=== PATIENT | male | born 1970 | race Two or more races ===

== ENCOUNTER 2023-04-13 17:28 | Emergency (ER) | payer OTHER, SELFPAY ==
[2023-04-13] VITALS (12 sets, daily range): BP systolic 141–145; BP diastolic 85–90; PULSE 55–78; RESP 5–24; TEMP 36.5; O2SAT 98–100; BMI 24.2
--- NOTE | 2023-04-13 17:37 | ECG_ITS ---
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
--- NOTE | 2023-04-13 17:38 | CT_ITS ---
The [address] [address] Patient Name: YARITZA TAN MRN: [id number] date: 1970 Sex: M Assigned Patient Location: ED.MAIN Current Patient Location: Accession/Order Number: [id number] Exam Date: 04/13/2023 18:10 Report Date: 04/13/2023 18:45 At the request of: GALINDO KOGN Procedure: CT head/brain wo con EXAM: CT head/brain wo con HISTORY: head injury COMPARISON: None. TECHNIQUE: Axial CT scans through the head were obtained without IV contrast administration. Dose reduction techniques were achieved by using: automated exposure control and/or adjustment of mA and /or kV according to patient size and/or use of iterative reconstruction technique. FINDINGS: There is no evidence of acute intracranial hemorrhage or abnormal extra-axial fluid collection. No mass effect or midline shift is seen. There is no evidence of large acute territorial infarction. There is no hydrocephalus. To the limit of CT, the posterior fossa appears unremarkable. No definite acute fracture is identified. Soft tissues are unremarkable. The visualized orbits show no abnormality. There is partially visualized small air-fluid level within the left maxillary sinus with frothy secretions. Mastoid air cells are clear. CT/CT head/brain wo con IMPRESSION: No CT evidence of acute intracranial abnormality. Partially visualized small air-fluid level within the left maxillary sinus with frothy secretions, may represent acute sinusitis. Recommend clinical correlation. Electronically authenticated by: DWIGHT LEONU Date: 04/13/2023 18:45
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
[2023-04-13] MEDS: ACETAMINOPHEN 300 MG/ 30 MG CODEINE TABLET 1 TAB PO (18:21)
== END 2023-04-13 19:04 | disposition home or self-care (01) ==
PROVIDERS: Emergency Provider Emergency Medicine
DX: S00.93XA Contusion of unspecified part of head, initial encounter (principal); S20.211A Contusion of right front wall of thorax, initial encounter; Y09 Assault by unspecified means; Z95.0 Presence of cardiac pacemaker
CPT/HCPCS: 70450; 71045; 93005; 99285

== ENCOUNTER 2023-11-09 00:57 | Emergency (ER) | payer OTHER, SELFPAY ==
[2023-11-09] VITALS (7 sets, daily range): BP systolic 109–115; BP diastolic 76–88; PULSE 67–83; TEMP 36.4; O2SAT 96–98; BMI 25.7
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
--- OUTSIDE RECORDS SUMMARY | 2023-11-09 01:11 | XMS_ITS | CCD ---
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 FILTRATION RATE ML/MIN/1.73 SQ M.PREDICTED 74.8 mL/min/1.73m*2 Normal >60.0 [facility] Comment on above: Result Comment: The [facility]???s estimated glomerular filtration rate (eGFR) will no longer include consideration of race in its calculation. The National Kidney Foundation???s eGFR Task Force developed new recommendations for the estimation of the glomerular filtration rate in the [place] They recommend immediate implementation of the new equation refit without the race variable in all laboratories because the calculation does not include race. In addition to not including race in the calculation and reporting, it included diversity in its development, and has acceptable performance characteristics and potential consequences that do not disproportionately affect any one group of individuals. Performed By: #### L [id number] ####[facility] ([facility])[address] [place] [address] Glucose [Mass/Vol] 89 mg/dL Normal 70-100 [facility] Comment on above: Performed By: #### L [id number] ####[facility] ([facility])[address] [place] [address] Potassium [Moles/Vol] 4.8 mmol/L Normal 3.5-5.1 [facility] Comment on above: Performed By: #### L [id number] ####[facility] ([facility])[address] [place] [address] Protein [Mass/Vol] 6.2 g/dL Normal 6.0-8.3 [facility] Comment on above: Performed By: #### L [id number] ####[facility] ([facility])[address] [place] [address] Sodium [Moles/Vol] 139 mmol/L Normal 136-145 [facility] Comment on above: Performed By: #### L [id number] ####[facility] ([facility])[address] [place] [address] Urea nitrogen [Mass/Vol] 21 mg/dL Normal 7-25 [facility] Comment on above: Performed By: #### L [id number] ####[facility] ([facility])[address] [place] [address] UREA NITROGEN/CREATININE (MASS RATIO) IN SER/PLAS 18.1 Normal [facility] Comment on above: Performed By: #### L [id number] ####[facility] ([facility])[address] [place] [address] HEMOGLOBIN A1Con 10-31-2022 Glucose [Mass/Vol] 120 mg/dL Normal [facility] Comment on above: Performed By: #### L [id number] #### [facility] ([facility]) [address] [place] [address] HbA1c (Bld) [Mass fraction] 5.8 % Normal 4.0-6.0 [facility] Comment on above: Performed By: #### L [id number] #### [facility] ([facility]) [address] [place] [address] LIPID PANELon 10-31-2022 CHOL/HDL 2.8 mg/dL Normal [facility] Comment on above: Performed By: #### L [id number] #### [facility] ([facility]) [address] [place] [address] Cholesterol [Mass/Vol] 162 mg/dL Normal 120-200 [facility] Comment on above: Performed By: #### L [id number] #### [facility] ([facility]) [address] [place] [address] Magnesium [Mass/Vol] 141 mg/dL Normal 40-149 [facility] Comment on above: Result Comment: TRIG LYCERIDE REFERENCE RANGE: 20 YEARS AND OLDER CARDIOVASCULAR RISK LESS THAN 150 mg/dL LOW RISK 150 TO 199 mg/dL BORDERLINE RISK 200 mg/dL AND GREATER HIGH RISK Performed By: #### L [id number] #### [facility] ([facility]) [address] [place] [address] Magnesium [Mass/Vol] 76 mg/dL Normal 0-160 [facility] Comment on above: Performed By: #### L [id number] #### [facility] [address] [place] [address] Magnesium [Mass/Vol] 58 mg/dL Normal 23-92 [facility] Comment on above: Performed By: #### L [id number] #### [facility] (BEAKER) [address] [place] [address] NON HDL CHOL. (LDL+VLDL) 104 Normal [facility] Comment on above: Performed By: #### L [id number] #### [facility] ([facility]) [address] [place] [address] TOTAL VLDL-C 28 mg/dL Normal 0-40 [facility] Comment on above: Performed By: #### L [id number] #### [facility] ([facility]) [address] [place] [address] MICROALBUMIN, URINE, RANDOMo n 10-31-2022 Albumin DL <= 20 mg/L (U) [Mass/Vol] mg/dL Normal [facility] Comment on above: Performed By: #### L [id number] #### [facility] ([facility]) [address] [place] [address] Creatinine (U) [Mass/Vol] 135.0 mg/dL Normal 26-299 [facility] Comment on above: Performed By: #### L [id number] #### [facility] ([facility]) [address] [place] [address] MICROALBUMIN/CREATI NINE (MG/G) IN URINE Normal [facility] Comment on above: Result Comment: Unab le to calculate Performed By: #### L [id number] #### [facility] ([facility]) [address] [place] [address] Office Visiton 10-31-2022 Follow-up visit [id number] Boni Cross 1970 M Date Provider Department Center 10/31/2022 JUAN EDWARDS [facility] Family History Problem Relation Age of Onset Lupus Mother Rheum arthritis Mother Scleroderma Mother Fibromyalgia Father Family Status - Relation Status Age at Mother Father Level of Service:74438 [place] PERIODIC PREVENTIVE MED EST PATIENT 40-64YRS Reason for Visit and Comments: Annual Exam [83] Normal [facility] PSA, SCREENINGon 10-31-2022 PROSTATE SPECIFIC AG (NG/ML) IN SER/PLAS 0.8 ng/mL Normal 0.4-4 [facility] Comment on above: Performed By: #### L [id number] #### [facility] ([facility]) [address] [place] [address] Refillon 10-31-2022 Refill [id number] BritneyBoni 1970 M Date Provider Department Center 10/31/2022 ElleNILOISABELTANA [facility] Family History Problem Relation Age of Onset Lupus Mother Rheum arthritis Mother Scleroderma Mother Fibromyalgia Father Family Status - Relation Status Age at Mother Father Reason for Visit and Comments: Med Refill [[id number]] [facility] 36on 10-12-2022 36 Called patient scheduled his Annual appointment with Dr España 10/31/22 @ 9am Can you send over his prescription Thank you Maria Ines [facility] 36 Needs an appt. thx [facility] 36on 10-11-2022 36 Patient called requesting refill on his Pregabalin 75 mg capsule Pharmacy on file is correct Thank you [facility] Prep for Procedureon 023 Prep for Procedure [id number] Boni Cross 1970 M Date Provider Department Center 10/11/2022 1987-NICHOLE GÓMEZ [facility]ANE [facility]D [facility] Family History Problem Relation Age of Onset Lupus Mother Rheum arthritis Mother Scleroderma Mother Fibromyalgia Father Family Status - Relation Status Age at Mother Father [facility] Refillon 10-11-2022 Refill [id number] BritneyBoni gerard 1970 M Date Provider Department Center 10/11/2022 362-JUAN ESPAÑA [facility] Family History Problem Relation Age of Onset Lupus Mother Rheum arthritis Mother Scleroderma Mother Fibromyalgia Father Family Status - Relation Status Age at Mother Father Reason for Visit and Comments: Med Refill [[id number]] [facility] Office Visiton 10-09-2022 Follow-up visit [id number] Boni Cross 1970 M Date Provider Department Center 10/09/2022 241-MITUL REESE [facility] Family History Problem Relation Age of Onset Lupus Mother Rheum arthritis Mother Scleroderma Mother Fibromyalgia Father Family Status - Relation Status Age at Mother Father Level of Service:42151 OK OFFICE/OUTPATIENT ESTABLISHED HIGH MDM 40-54 MIN Reason for Visit and Comments: Follow-up [[id number]] - 5 month f/u [facility] Orders Onlyon 10-09-2022 Orders Only [id number] Ulysses Crossdo 1970 M Date Provider Department Center 10/09/2022 TIERRA PEREZ [facility] Family History Problem Relation Age of Onset Lupus Mother Rheum arthritis Mother Scleroderma Mother Fibromyalgia Father Family Status - Relation Status Age at Mother Father Normal [facility] Office Visiton 08-02-2022 Follow-up visit [id number] Ulysses Crossdo 1970 M Date Provider Department Center 08/02/2022 CATRACHO GUZMAN [facility] ORTHO MPORTHO Family History Problem Relation Age of Onset Lupus Mother Rheum arthritis Mother Scleroderma Mother Fibromyalgia Father Family Status - Relation Status Age at Mother Father Level of Service:51905 OK OFFICE/OUTPATIENT ESTABLISHED MOD MDM 30-39 MIN (25,GC) Reason for Visit and Comments: Pain [136] - Referred by Dr. España Pain [136] [facility] Office Visiton 07-16-2022 Follow-up visit [id number] Ulysses Crossdo 1970 M Date Provider Department Center 07/16/2022 HAYDEE ZAFAR [facility] Family History Problem Relation Age of Onset Lupus Mother Rheum arthritis Mother Scleroderma Mother Fibromyalgia Father Family Status - Relation Status Age at Mother Father Level of Service:34363 OK OFFICE/OUTPATIENT NEW MODERATE MDM 45-59 MINUTES Reason for Visit and Comments: New Patient [632] - Ed issues [facility] OSMOLALITYon 05-30-2022 Osmolality [Osmolality] 256 mosm/kg Critically low 275-295 [facility] Comment on above: Performed By: #### O SMO #### [facility] [address] [place] [address] Dr. Salud Lord CARBAMAZEPINE FREEon 023 Carbamazepine, Free, Serum 0.7 ug/mL Normal 0.6-4.2 [facility] Comment on above: Result Comment: Dete ction Limit = 0.5 Performed By: #### C BC #### [facility] [address] [place] [address] Dr. Salud Lord OSMOLALITY URINEon Osmolality, Urine 120 mOsmol/kg Normal [facility] Comment on above: Result Comment: 24 h r : 300 - 900 Random: 50 - 1400 After 12hr fluid restriction: >850 Performed By: #### O SMOU #### [facility] [address] [place] [address] Dr. Salud Lord CBC AUTO DIFFon 05-28-2022 BASO # 0.0 103/ul Normal 0.0-0.1 [facility] Comment on above: Performed By: #### C BC #### [facility] [address] [place] [address] Dr. Salud Lord Basophils/100 WBC (Bld) 0.2 % Normal 0.2-2.0 [facility] Comment on above: Performed By: #### C BC #### [facility] [address] [place] [address] Dr. Salud Lord EO # 0.0 103/ul Normal 0.0-0.7 [facility] Comment on above: Performed By: #### C BC #### [facility] [address] [place] [address] Dr. Salud Lord Eosinophils/100 WBC (Bld) 0.2 % Critically low 0.9-7.0 [facility] Comment on above: Performed By: #### C BC #### [facility] [address] [place] [address] Dr. Salud Lord Erythrocyte distribution width (RBC) [Ratio] 12.7 % Normal 11.0-15.0 [facility] Comment on above: Performed By: #### C BC #### [facility] [address] [place] [address] Dr. Salud Lord Hematocrit (Bld) [Volume fraction] 36.5 % Critically low 42.0-54.0 [facility] Comment on above: Performed By: #### C BC #### [facility] [address] [place] [address] Dr. Salud Lord Hemoglobin (Bld) [Mass/Vol] 12.9 g/dL Critically low 14.0-18.0 [facility] Comment on above: Performed By: #### C BC #### [facility] [address] [place] [address] Dr. Salud Lord IG # 0.04 10e3/ul Critically high 0.00-0.03 [facility] Comment on above: Performed By: #### C BC #### [facility] [address] [place] [address] Dr. Salud Lord IG % 0.5 % Normal 0.0-0.5 [facility] Comment on above: Performed By: #### C BC #### [facility] [address] [place] [address] Dr. Salud Lord LYMPH # 0.5 103/ul Critically low 1.2-3.8 [facility] Comment on above: Performed By: #### C BC #### [facility] [address] [place] [address] Dr. Salud Lord Lymphocytes/100 WBC (Bld) 6.0 % Critically low 20.5-60.0 [facility] Comment on above: Performed By: #### C BC #### [facility] [address] [place] [address] Dr. Salud Lord MANUAL DIFF REQ NO Normal [facility] Comment on above: Performed By: #### C BC #### [facility] [address] [place] [address] Dr. Salud Lord MCH (RBC) [Entitic mass] 32.3 pg Normal 25.9-34.0 [facility] Comment on above: Performed By: #### C BC #### [facility] [address] [place] [address] Dr. Salud Lord MCHC (RBC) [Mass/Vol] 35.3 g/dL Critically high 29.9-35.2 [facility] Comment on above: Performed By: #### C BC #### [facility] [address] [place] [address] Dr. Salud Lord MCV (RBC) [Entitic vol] 91.3 fL Normal 80.0-94.0 [facility] Comment on above: Performed By: #### C BC #### [facility] [address] [address] [address] Salud Lord MONO # 0.5 103/ul Normal 0.3-0.8 [facility] Comment on above: Performed By: #### C BC #### [facility] [address] [address] [address] Salud Lord Monocytes/100 WBC (Bld) 6.3 % Normal 1.7-12.0 [facility] Comment on above: Performed By: #### C BC #### [facility] [address] [address] [address] Salud Lord NEUT # 7.2 103/ul Critically high 1.4-6.5 [facility] Comment on above: Performed By: #### C BC #### [facility] [address] [place] [address] Dr. Salud Lord Neutrophils/100 WBC (Bld) 86.8 % Critically high 43.0-75.0 [facility] Comment on above: Performed By: #### C BC #### [facility] [address] [place] [address] Dr. Salud Lord Platelet mean volume (Bld) [Entitic vol] 9.4 fL Critically low 9.5-13.5 [facility] Comment on above: Performed By: #### C BC #### [facility] [address] [place] [address] Dr. Salud Lord PLT 248 103/ul Normal 150-450 [facility] Comment on above: Performed By: #### C BC #### [facility] [address] [place] [address] Dr. Salud Lord RBC 4.00 106/ul Critically low 4.70-6.10 [facility] Comment on above: Performed By: #### C BC #### [facility] [address] [place] [address] Dr. Salud Lord WBC 8.3 103/ul Normal 4.0-11.0 [facility] Comment on above: Performed By: #### C BC #### [facility] [address] [place] [address] Dr. Salud Lord PROF 14(COMP METB)on 023 Albumin [Mass/Vol] 3.7 g/dL Normal 3.4-5.0 [facility] Comment on above: Performed By: #### C MP #### [facility] [address] [place] [address] Dr. Salud Lord Albumin/Globulin [Mass ratio] 1.5 {ratio} Normal [facility] Comment on above: Performed By: #### C MP #### [facility] [address] [place] [address] Dr. Salud Lord ALP [Catalytic activity/Vol] 107 U/L Normal 46-116 [facility] Comment on above: Performed By: #### C MP #### [facility] [address] [place] [address] Dr. Salud Lord ALT [Catalytic activity/Vol] 16 U/L Normal 16-63 [facility] Comment on above: Performed By: #### C MP #### [facility] [address] [place] [address] Dr. Salud Lord Anion gap [Moles/Vol] 12.6 mmol/L Normal [facility] Comment on above: Performed By: #### C MP #### [facility] [address] [place] [address] Dr. Salud Lord AST [Catalytic activity/Vol] 17 U/L Normal 15-37 [facility] Comment on above: Performed By: #### C MP #### [facility] [address] [place] [address] Dr. Salud Lord Bilirubin [Mass/Vol] 0.3 mg/dL Normal 0.2-1.0 [facility] Comment on above: Performed By: #### C MP #### [facility] [address] [place] [address] Dr. Salud Lord Calcium [Mass/Vol] 8.1 mg/dL Critically low 8.5-10.1 [facility] Comment on above: Performed By: #### C MP #### [facility] [address] [address] [address] Salud Lord Chloride [Moles/Vol] 98 mmol/L Normal 98-107 [facility] Comment on above: Performed By: #### C MP #### [facility] [address] [place] [address] Dr. Salud Lord CO2 [Moles/Vol] 23.9 mmol/L Normal 21.0-32.0 [facility] Comment on above: Performed By: #### C MP #### [facility] [address] [place] [address] Dr. Salud Lord Creatinine [Mass/Vol] 0.83 mg/dL Normal 0.70-1.30 [facility] Comment on above: Performed By: #### C MP #### [facility] [address] [place] [address] Dr. Salud Lord EGFR-AF TRINIDADIAN >60 Normal >=60 [facility] Comment on above: Performed By: #### C MP #### [facility] [address] [place] [address] Dr. Salud Lord EGFR-NON AF TRINIDADIAN >60 Normal >=60 [facility] Comment on above: Performed By: #### C MP #### [facility] [address] [place] [address] Dr. Salud Lord Globulin (S) [Mass/Vol] 2.5 g/dL Normal [facility] Comment on above: Performed By: #### C MP #### [facility] [address] [place] [address] Dr. Salud Lord Glucose [Mass/Vol] 120 mg/dL Critically high 74-106 T [facility] Comment on above: Performed By: #### C MP #### [facility] [address] [place] [address] Dr. Salud Lord Potassium [Moles/Vol] 4.5 mmol/L Normal 3.5-5.1 [facility] Comment on above: Performed By: #### C MP #### [facility] [address] [place] [address] Dr. Salud Lord Protein [Mass/Vol] 6.2 g/dL Critically low 6.4-8.2 Th [facility] Comment on above: Performed By: #### C MP #### [facility] [address] [place] [address] Dr. Salud Lord Sodium [Moles/Vol] 130 mmol/L Critically low 136-145 Th [facility] Comment on above: Performed By: #### C MP #### [facility] [address] [place] [address] Dr. Salud Lord Urea nitrogen [Mass/Vol] 10.0 mg/dL Normal 7.0-18.0 [facility] Comment on above: Performed By: #### C MP #### [facility] [address] [place] [address] Dr. Salud Lord Urea nitrogen/Creatinine [Mass ratio] 12.0 mg/mg Normal [facility] Comment on above: Performed By: #### C MP #### [facility] [address] [place] [address] Dr. Salud Lord BNPon 05-27-2022 Natriuretic peptide B (Bld) [Mass/Vol] 38.0 pg/mL Normal <=900.0 [facility] Comment on above: Performed By: #### B PAINTER SIGN MAINTENANCE, TSH, MG #### [facility] [address] [place] [address] Dr. Salud Lord CBC AUTO DIFFon 05-27-2022 BASO # 0.0 103/ul Normal 0.0-0.1 [facility] Comment on above: Performed By: #### C BC #### [facility] [address] [place] [address] Dr. Salud Lord Basophils/100 WBC (Bld) 0.4 % Normal 0.2-2.0 [facility] Comment on above: Performed By: #### C BC #### [facility] [address] [place] [address] Dr. Salud Lord EO # 0.2 103/ul Normal 0.0-0.7 [facility] Comment on above: Performed By: #### C BC #### [facility] [address] [address] [address] Salud Lord Eosinophils/100 WBC (Bld) 4.5 % Normal 0.9-7.0 [facility] Comment on above: Performed By: #### C BC #### [facility] [address] [address] [address] Salud Lord Erythrocyte distribution width (RBC) [Ratio] 12.5 % Normal 11.0-15.0 [facility] Comment on above: Performed By: #### C BC #### [facility] [address] [place] [address] Dr. Salud Lord Hematocrit (Bld) [Volume fraction] 36.3 % Critically low 42.0-54.0 [facility] Comment on above: Performed By: #### C BC #### [facility] [address] [place] [address] Dr. Salud Lord Hemoglobin (Bld) [Mass/Vol] 12.8 g/dL Critically low 14.0-18.0 [facility] Comment on above: Performed By: #### C BC #### [facility] [address] [place] [address] Dr. Salud Lord IG # 0.02 10e3/ul Normal 0.00-0.03 [facility] Comment on above: Performed By: #### C BC #### [facility] [address] [place] [address] Dr. Salud Lord IG % 0.4 % Normal 0.0-0.5 [facility] Comment on above: Performed By: #### C BC #### [facility] [address] [place] [address] Dr. Salud Lord LYMPH # 1.0 103/ul Critically low 1.2-3.8 [facility] Comment on above: Performed By: #### C BC #### [facility] [address] [place] [address] Dr. Salud Lord Lymphocytes/100 WBC (Bld) 19.3 % Critically low 20.5-60.0 [facility] Comment on above: Performed By: #### C BC #### [facility] [address] [place] [address] Dr. Salud Lord MANUAL DIFF REQ NO Normal [facility] Comment on above: Performed By: #### C BC #### [facility] [address] [place] [address] Dr. Salud Lord MCH (RBC) [Entitic mass] 32.2 pg Normal 25.9-34.0 [facility] Comment on above: Performed By: #### C BC #### [facility] [address] [place] [address] Dr. Salud Lord MCHC (RBC) [Mass/Vol] 35.3 g/dL Critically high 29.9-35.2 [facility] Comment on above: Performed By: #### C BC #### [facility] [address] [place] [address] Dr. Salud Lord MCV (RBC) [Entitic vol] 91.2 fL Normal 80.0-94.0 [facility] Comment on above: Performed By: #### C BC #### [facility] [address] [place] [address] Dr. Salud Lord MONO # 0.4 103/ul Normal 0.3-0.8 [facility] Comment on above: Performed By: #### C BC #### [facility] [address] [place] [address] Dr. Salud Lord Monocytes/100 WBC (Bld) 7.9 % Normal 1.7-12.0 [facility] Comment on above: Performed By: #### C BC #### [facility] [address] [place] [address] Dr. Salud Lord NEUT # 3.6 103/ul Normal 1.4-6.5 [facility] Comment on above: Performed By: #### C BC #### [facility] [address] [place] [address] Dr. Salud Lord Neutrophils/100 WBC (Bld) 67.5 % Normal 43.0-75.0 [facility] Comment on above: Performed By: #### C BC #### [facility] [address] [place] [address] Dr. Salud Lord Platelet mean volume (Bld) [Entitic vol] 9.3 fL Critically low 9.5-13.5 [facility] Comment on above: Performed By: #### C BC #### [facility] [address] [address] [address] Salud Lrod PLT 216 103/ul Normal 150-450 [facility] Comment on above: Performed By: #### C BC #### [facility] [address] [address] [address] Salud Lord RBC 3.98 106/ul Critically low 4.70-6.10 [facility] Comment on above: Performed By: #### C BC #### [facility] [address] [address] [address] Salud Lord WBC 5.3 103/ul Normal 4.0-11.0 [facility] Comment on above: Performed By: #### C BC #### [facility] [address] HEAD WO CONon 05-27-2022 CT HEAD WO CON INDICATION: 51 years old; Male. Headache. TECHNIQUE: CT Head (ax/cor/sag reformats). Ionizing radiation dose reduced via iterative reconstruction/FBP blend and body size kV/mA adjustment. Comparison: Head CT dated 05/04/2019. FINDINGS: POSTOPERATIVE CHANGES: None. BRAIN PARENCHYMA: No focal lesions. No mass effect. No midline shift or herniation. No intraparenchymal or extra-axial hemorrhage. Normal briones/white differentiation. VENTRICLES/EXTRA-AXIAL SPACES: Top normal in size. SINUSES/MASTOIDS: The visualized sinuses are clear. Mastoid air cells are clear. MSK: No displaced or depressed calvarial fracture is noted. OTHER: No hyperdense intraluminal thrombus is seen. IMPRESSION: 1. No acute intracranial abnormality. No hemorrhage or mass effect. Electronically authenticated by: LISA BLAIR Date: 2022-05-26 22:45 Normal [facility] MAGNESIUMon 05-27-2022 Magnesium [Mass/Vol] 1.9 mg/dL Normal 1.8-2.4 [facility] Comment on above: Performed By: #### B PAINTER SIGN MAINTENANCE, TSH, MG #### [facility] [address] [address] [address] Salud Lord PROF 14(COMP METB)on 023 Albumin [Mass/Vol] 3.6 g/dL Normal 3.4-5.0 [facility] Comment on above: Performed By: #### B PAINTER SIGN MAINTENANCE, TSH, MG #### [facility] [address] [address] [address] Salud Lord Albumin/Globulin [Mass ratio] 1.5 {ratio} Normal [facility] Comment on above: Performed By: #### B PAINTER SIGN MAINTENANCE, TSH, MG #### [facility] [address] [address] [address] Salud Lord ALP [Catalytic activity/Vol] 81 U/L Normal 46-116 [facility] Comment on above: Performed By: #### B PAINTER SIGN MAINTENANCE, TSH, MG #### [facility] [address] [address] [address] Salud Lord ALT [Catalytic activity/Vol] 18 U/L Normal 16-63 [facility] Comment on above: Performed By: #### B PAINTER SIGN MAINTENANCE, TSH, MG #### [facility] [address] [address] [address] Salud Lord Anion gap [Moles/Vol] 7.3 mmol/L Normal [facility] Comment on above: Performed By: #### B PAINTER SIGN MAINTENANCE, TSH, MG #### [facility] [address] [address] [address] Salud Lord AST [Catalytic activity/Vol] 19 U/L Normal 15-37 [facility] Comment on above: Performed By: #### B PAINTER SIGN MAINTENANCE, TSH, MG #### [facility] [address] [address] [address] Salud Lord Bilirubin [Mass/Vol] 0.5 mg/dL Normal 0.2-1.0 [facility] Comment on above: Performed By: #### B PAINTER SIGN MAINTENANCE, TSH, MG #### [facility] [address] [address] [address] Salud Lord Calcium [Mass/Vol] 8.0 mg/dL Critically low 8.5-10.1 Th e [facility] Comment on above: Performed By: #### B PAINTER SIGN MAINTENANCE, TSH, MG #### [facility] [address] [place] [address] Dr. Salud Lord Chloride [Moles/Vol] 94 mmol/L Critically low 98-107 [facility] Comment on above: Performed By: #### B PAINTER SIGN MAINTENANCE, TSH, MG #### [facility] [address] [place] [address] Dr. Salud Lord CO2 [Moles/Vol] 28.8 mmol/L Normal 21.0-32.0 [facility] Comment on above: Performed By: #### B PAINTER SIGN MAINTENANCE, TSH, MG #### [facility] [address] [place] [address] Dr. Salud Lord Creatinine [Mass/Vol] 0.65 mg/dL Critically low 0.70-1.30 [facility] Comment on above: Performed By: #### B PAINTER SIGN MAINTENANCE, TSH, MG #### [facility] [address] [place] [address] Dr. Salud Lord EGFR-AF TRINIDADIAN >60 Normal >=60 [facility] Comment on above: Performed By: #### B PAINTER SIGN MAINTENANCE, TSH, MG #### [facility] [address] [place] [address] Dr. Salud Lord EGFR-NON AF TRINIDADIAN >60 Normal >=60 [facility] Comment on above: Performed By: #### B PAINTER SIGN MAINTENANCE, TSH, MG #### [facility] [address] [place] [address] Dr. Salud Lord Globulin (S) [Mass/Vol] 2.4 g/dL Normal [facility] Comment on above: Performed By: #### B PAINTER SIGN MAINTENANCE, TSH, MG #### [facility] [address] [place] [address] Dr. Salud Lord Glucose [Mass/Vol] 104 mg/dL Normal 74-106 [facility] Comment on above: Performed By: #### B PAINTER SIGN MAINTENANCE, TSH, MG #### [facility] [address] [place] [address] Dr. Salud Lord Potassium [Moles/Vol] 4.1 mmol/L Normal 3.5-5.1 [facility] Comment on above: Performed By: #### B PAINTER SIGN MAINTENANCE, TSH, MG #### [facility] [address] [place] [address] Dr. Salud Lord Protein [Mass/Vol] 6.0 g/dL Critically low 6.4-8.2 Th [facility] Comment on above: Performed By: #### B PAINTER SIGN MAINTENANCE, TSH, MG #### [facility] [address] [place] [address] Dr. Salud Lord Sodium [Moles/Vol] 126 mmol/L Critically low 136-145 Th [facility] Comment on above: Performed By: #### B PAINTER SIGN MAINTENANCE, TSH, MG #### [facility] [address] [place] [address] Dr. Salud Lord Urea nitrogen [Mass/Vol] 5.0 mg/dL Critically low 7.0-18.0 [facility] Comment on above: Performed By: #### B PAINTER SIGN MAINTENANCE, TSH, MG #### [facility] [address] [place] [address] Dr. Salud Lord Urea nitrogen/Creatinine [Mass ratio] 7.7 mg/mg Normal [facility] Comment on above: Performed By: #### B PAINTER SIGN MAINTENANCE, TSH, MG #### [facility] [address] [place] [address] Dr. Salud Lord PROF CHEM 8 (BAS METB)on Anion gap [Moles/Vol] 13.0 mmol/L Normal [facility] Comment on above: Performed By: #### B MP #### [facility] [address] [place] [address] Dr. Salud Lord Calcium [Mass/Vol] 7.8 mg/dL Critically low 8.5-10.1 [facility] Comment on above: Performed By: #### B MP #### [facility] [address] [place] [address] Dr. Salud Lord Chloride [Moles/Vol] 94 mmol/L Critically low 98-107 [facility] Comment on above: Performed By: #### B MP #### [facility] [address] [address] [address] Salud Lord CO2 [Moles/Vol] 24.5 mmol/L Normal 21.0-32.0 [facility] Comment on above: Performed By: #### B MP #### [facility] [address] [address] [address] Salud Lord Creatinine [Mass/Vol] 0.75 mg/dL Normal 0.70-1.30 [facility] Comment on above: Performed By: #### B MP #### [facility] [address] [address] [address] Salud Lord EGFR-AF TRINIDADIAN >60 Normal >=60 [facility] Comment on above: Performed By: #### B MP #### [facility] [address] [address] [address] Salud Lord EGFR-NON AF TRINIDADIAN >60 Normal >=60 [facility] Comment on above: Performed By: #### B MP #### [facility] [address] [address] [address] Salud Lord Glucose [Mass/Vol] 104 mg/dL Normal 74-106 [facility] Comment on above: Performed By: #### B MP #### [facility] [address] [address] [address] Salud Lord Potassium [Moles/Vol] 4.5 mmol/L Normal 3.5-5.1 [facility] Comment on above: Performed By: #### B MP #### [facility] [address] [address] [address] Salud Lord Sodium [Moles/Vol] 127 mmol/L Critically low 136-145 Th [facility] Comment on above: Performed By: #### B MP #### [facility] [address] [address] [address] Salud Lord Urea nitrogen [Mass/Vol] 6.0 mg/dL Critically low 7.0-18.0 [facility] Comment on above: Performed By: #### B MP #### [facility] [address] [address] [address] Salud Lord Urea nitrogen/Creatinine [Mass ratio] 8.0 mg/mg Normal [facility] Comment on above: Performed By: #### B MP #### [facility] [address] [place] [address] Dr. Salud Lord Anion gap [Moles/Vol] 13.1 mmol/L Normal [facility] Comment on above: Performed By: #### B PAINTER SIGN MAINTENANCE, TSH, MG #### [facility] [address] [place] [address] Dr. Salud Lord Calcium [Mass/Vol] 7.8 mg/dL Critically low 8.5-10.1 Th [facility] Comment on above: Performed By: #### B PAINTER SIGN MAINTENANCE, TSH, MG #### [facility] [address] [place] [address] Dr. Salud Lord Chloride [Moles/Vol] 92 mmol/L Critically low 98-107 [facility] Comment on above: Performed By: #### B PAINTER SIGN MAINTENANCE, TSH, MG #### [facility] [address] [place] [address] Dr. Salud Lord CO2 [Moles/Vol] 24.9 mmol/L Normal 21.0-32.0 [facility] Comment on above: Performed By: #### B PAINTER SIGN MAINTENANCE, TSH, MG #### [facility] [address] [place] [address] Dr. Salud Lord Creatinine [Mass/Vol] 0.71 mg/dL Normal 0.70-1.30 [facility] Comment on above: Performed By: #### B PAINTER SIGN MAINTENANCE, TSH, MG #### [facility] [address] [place] [address] Dr. Salud Lord EGFR-AF TRINIDADIAN >60 Normal >=60 [facility] Comment on above: Performed By: #### B PAINTER SIGN MAINTENANCE, TSH, MG #### [facility] [address] [place] [address] Dr. Salud Lord EGFR-NON AF TRINIDADIAN >60 Normal >=60 [facility] Comment on above: Performed By: #### B PAINTER SIGN MAINTENANCE, TSH, MG #### [facility] [address] [place] [address] Dr. Salud Lord Glucose [Mass/Vol] 101 mg/dL Normal 74-106 [facility] Comment on above: Performed By: #### B PAINTER SIGN MAINTENANCE, TSH, MG #### [facility] [address] [place] [address] Dr. Salud Lord Potassium [Moles/Vol] 4.0 mmol/L Normal 3.5-5.1 [facility] Comment on above: Performed By: #### B PAINTER SIGN MAINTENANCE, TSH, MG #### [facility] [address] [place] [address] Dr. Salud Lord Sodium [Moles/Vol] 126 mmol/L Critically low 136-145 [facility] Comment on above: Performed By: #### B PAINTER SIGN MAINTENANCE, TSH, MG #### [facility] [address] [place] [address] Dr. Salud Lord Urea nitrogen [Mass/Vol] 6.0 mg/dL Critically low 7.0-18.0 [facility] Comment on above: Performed By: #### B PAINTER SIGN MAINTENANCE, TSH, MG #### [facility] [address] [place] [address] Dr. Salud Lord Urea nitrogen/Creatinine [Mass ratio] 8.5 mg/mg Normal [facility] Comment on above: Performed By: #### B PAINTER SIGN MAINTENANCE, TSH, MG #### [facility] [address] [place] [address] Dr. Salud Lord PROTEIN RAND URINEon 023 UR PROT <6.0 Normal <=11.9 [facility] Comment on above: Performed By: #### B PAINTER SIGN MAINTENANCE, TSH, MG #### [facility] [address] [place] [address] Dr. Salud Lord SODIUM RANDOM URINEon 2022 Sodium (U) [Moles/Vol] 31 mmol/L Normal 30-90 [facility] Comment on above: Performed By: #### C BC #### [facility] [address] [place] [address] Dr. Salud Lord TSHon 05-27-2022 TSH 1.203 uIU/mL Normal 0.358-3.740 [facility] Comment on above: Performed By: #### B PAINTER SIGN MAINTENANCE, TSH, MG #### [facility] [address] [place] [address] Dr. Salud Lord URINE T PROTEIN CREAT RATIOo n 05-27-2022 UR TOTAL PROTEIN <6.0 Normal <=12.0 [facility] Comment on above: Performed By: #### U RTPCR #### [facility] [address] [place] [address] Dr. Salud Lord URINE CREAT <13.00 Critically low 20.00-300.00 [facility] Comment on above: Performed By: #### U RTPCR #### [facility] [address] [place] [address] Dr. Salud Lord Performed By: #### B PAINTER SIGN MAINTENANCE, TSH, MG #### [facility] [address] [place] [address] Dr. Salud Lord BNPon 05-26-2022 Natriuretic peptide B (Bld) [Mass/Vol] 56.0 pg/mL Normal <=900.0 [facility] Comment on above: Performed By: #### C BC #### [facility] [address] [place] [address] Dr. Slaud Lord CBC AUTO DIFFon 05-26-2022 BASO # 0.0 103/ul Normal 0.0-0.1 [facility] Comment on above: Performed By: #### B PAINTER SIGN MAINTENANCE, TSH, MG #### [facility] [address] [place] [address] Dr. Salud Lord Basophils/100 WBC (Bld) 0.5 % Normal 0.2-2.0 [facility] Comment on above: Performed By: #### B PAINTER SIGN MAINTENANCE, TSH, MG #### [facility] [address] [place] [address] Dr. Salud Lord EO # 0.1 103/ul Normal 0.0-0.7 [facility] Comment on above: Performed By: #### B PAINTER SIGN MAINTENANCE, TSH, MG #### [facility] [address] [place] [address] Dr. Salud Lord Eosinophils/100 WBC (Bld) 1.3 % Normal 0.9-7.0 [facility] Comment on above: Performed By: #### B PAINTER SIGN MAINTENANCE, TSH, MG #### [facility] [address] [place] [address] Dr. Salud Lord Erythrocyte distribution width (RBC) [Ratio] 12.4 % Normal 11.0-15.0 [facility] Comment on above: Performed By: #### B PAINTER SIGN MAINTENANCE, TSH, MG #### [facility] [address] [place] [address] Dr. Salud Lord Hematocrit (Bld) [Volume fraction] 37.2 % Critically low 42.0-54.0 [facility] Comment on above: Performed By: #### B PAINTER SIGN MAINTENANCE, TSH, MG #### [facility] [address] [place] [address] Dr. Salud Lord Hemoglobin (Bld) [Mass/Vol] 13.3 g/dL Critically low 14.0-18.0 [facility] Comment on above: Performed By: #### B PAINTER SIGN MAINTENANCE, TSH, MG #### [facility] [address] [place] [address] Dr. Salud Lord IG # 0.02 10e3/ul Normal 0.00-0.03 [facility] Comment on above: Performed By: #### B PAINTER SIGN MAINTENANCE, TSH, MG #### [facility] [address] [place] [address] Dr. Salud Lord IG % 0.5 % Normal 0.0-0.5 [facility] Comment on above: Performed By: #### B PAINTER SIGN MAINTENANCE, TSH, MG #### [facility] [address] [place] [address] Dr. Salud Lord LYMPH # 1.0 103/ul Critically low 1.2-3.8 [facility] Comment on above: Performed By: #### B PAINTER SIGN MAINTENANCE, TSH, MG #### [facility] [address] [place] [address] Dr. Salud Lord Lymphocytes/100 WBC (Bld) 25.6 % Normal 20.5-60.0 [facility] Comment on above: Performed By: #### B PAINTER SIGN MAINTENANCE, TSH, MG #### [facility] [address] [address] [address] Salud Lord MANUAL DIFF REQ NO Normal [facility] Comment on above: Performed By: #### B PAINTER SIGN MAINTENANCE, TSH, MG #### [facility] [address] [place] [address] Dr. Salud Lord MCH (RBC) [Entitic mass] 32.2 pg Normal 25.9-34.0 [facility] Comment on above: Performed By: #### B PAINTER SIGN MAINTENANCE, TSH, MG #### [facility] [address] [place] [address] Dr. Salud Lord MCHC (RBC) [Mass/Vol] 35.8 g/dL Critically high 29.9-35.2 [facility] Comment on above: Performed By: #### B PAINTER SIGN MAINTENANCE, TSH, MG #### [facility] [address] [place] [address] Dr. Salud Lord MCV (RBC) [Entitic vol] 90.1 fL Normal 80.0-94.0 [facility] Comment on above: Performed By: #### B PAINTER SIGN MAINTENANCE, TSH, MG #### [facility] [address] [place] [address] Dr. Salud Lord MONO # 0.4 103/ul Normal 0.3-0.8 [facility] Comment on above: Performed By: #### B PAINTER SIGN MAINTENANCE, TSH, MG #### [facility] Laboratory [address] [place] [address] Dr. Salud Lord Monocytes/100 WBC (Bld) 10.0 % Normal 1.7-12.0 [facility] Comment on above: Performed By: #### B PAINTER SIGN MAINTENANCE, TSH, MG #### [facility] Laboratory [address] [place] [address] Dr. Salud Lord NEUT # 2.4 103/ul Normal 1.4-6.5 [facility] Comment on above: Performed By: #### B PAINTER SIGN MAINTENANCE, TSH, MG #### [facility] Laboratory [address] [place] [address] Dr. Salud Lord Neutrophils/100 WBC (Bld) 62.1 % Normal 43.0-75.0 [facility] Comment on above: Performed By: #### B PAINTER SIGN MAINTENANCE, TSH, MG #### [facility] Laboratory [address] [address] [address] Salud Lord Platelet mean volume (Bld) [Entitic vol] 9.2 fL Critically low 9.5-13.5 [facility] Comment on above: Performed By: #### B PAINTER SIGN MAINTENANCE, TSH, MG #### [facility] Laboratory [address] [place] [address] Dr. Salud Lord PLT 238 103/ul Normal 150-450 [facility] Comment on above: Performed By: #### B PAINTER SIGN MAINTENANCE, TSH, MG #### [facility] Laboratory [address] [place] [address] Dr. Salud Lord RBC 4.13 106/ul Critically low 4.70-6.10 [facility] Comment on above: Performed By: #### B PAINTER SIGN MAINTENANCE, TSH, MG #### [facility] Laboratory [address] [place] [address] Dr. Salud Lord WBC 3.8 103/ul Critically low 4.0-11.0 [facility] [place] [facility] Comment on above: Performed By: #### B PAINTER SIGN MAINTENANCE, TSH, MG #### [facility] Laboratory [address] [place] [address] Dr. Salud Lord Covid-19 PCR ([facility])on SARS-CoV-2 (COVID-19) RNA ESTELLE+probe Ql (Unsp spec) Not detected Normal NOT DETECTED The [facility] Comment on above: Result Comment: When diagnostic testing is negative, the possibility of a false negative should be considered in the context of a patient's recent exposures and the presence of clinical signs and symptoms consistent with SARS-CoV-2. This test is not yet approved or cleared by the [place] FDA. When there are no FDA-approved or cleared tests available, and other criteria are met, FDA can make tests available under an emergency access mechanism called an Emergency Use Authorization (EUA). The EUA for this test is supported by the [place] of Health and Human Service's declaration that circumstances exist to justify the emergency use of in vitro diagnostics for the detection and/or diagnosis of the virus that causes COVID-19. This EUA will remain in effect for the duration of the COVID-19 declaration justifying emergency of IVDs, unless it is terminated or revoked by the FDA (after which the test may no longer be used). Performed By: #### B PAINTER SIGN MAINTENANCE, TSH, MG #### [facility] Laboratory [address] [address] [address] Salud Lord PROF CHEM 8 (BAS METB)on Anion gap [Moles/Vol] 11.3 mmol/L Normal [facility] Comment on above: Performed By: #### C BC #### [facility] Laboratory [address] [address] [address] Salud Lord Calcium [Mass/Vol] 8.2 mg/dL Critically low 8.5-10.1 [facility] Comment on above: Performed By: #### C BC #### [facility] Laboratory [address] [place] [address] Dr. Salud Lord Chloride [Moles/Vol] 87 mmol/L Critically low 98-107 [facility] Comment on above: Performed By: #### C BC #### [facility] Laboratory [address] [address] [address] Salud Lord CO2 [Moles/Vol] 27.9 mmol/L Normal 21.0-32.0 [facility] Comment on above: Performed By: #### C BC #### [facility] Laboratory [address] [place] [address] Dr. Salud Lord Creatinine [Mass/Vol] 0.88 mg/dL Normal 0.70-1.30 [facility] Comment on above: Performed By: #### C BC #### [facility] Laboratory [address] [place] [address] Dr. Salud Lord EGFR-AF TRINIDADIAN >60 Normal >=60 [facility] Comment on above: Performed By: #### C BC #### [facility] Laboratory [address] [place] [address] Dr. Salud Lord EGFR-NON AF TRINIDADIAN >60 Normal >=60 [facility] Comment on above: Performed By: #### C BC #### [facility] Laboratory [address] [address] [address] Salud Lord Glucose [Mass/Vol] 101 mg/dL Normal 74-106 [facility] Comment on above: Performed By: #### C BC #### [facility] Laboratory [address] [address] [address] Salud Lord Potassium [Moles/Vol] 4.2 mmol/L Normal 3.5-5.1 [facility] Comment on above: Performed By: #### C BC #### [facility] Laboratory [address] [place] [address] Dr. Salud Lord Sodium [Moles/Vol] 122 mmol/L Critically low 136-145 [facility] Comment on above: Performed By: #### C BC #### [facility] Laboratory [address] [place] [address] Dr. Salud Lord Urea nitrogen [Mass/Vol] 7.0 mg/dL Normal 7.0-18.0 [facility] Comment on above: Performed By: #### C BC #### [facility] Laboratory [address] [place] [address] Dr. Salud Lord Urea nitrogen/Creatinine [Mass ratio] 8.0 mg/mg Normal [facility] Comment on above: Performed By: #### C BC #### [facility] Laboratory [address] [place] [address] Dr. Salud Lord TROPONIN, HIGH SENSITIVITYon 05-26-2022 HSTROP 4.7 pg/mL Normal 4.0-76.1 [facility] Comment on above: Result Comment: CUT- OFF POINTS HAVE BEEN ESTABLISHED BASED ON THE FOURTH UNIVERSAL DEFINITIONS OF MYOCARDIAL INFARCTION. THE UPPER REFERENCE LIMIT (URL) OF TROPONIN, DEFINED THE 99TH PERCENTILE OF cTnI DISTRIBUTION IN A REFERENCE POPULATION, HAS BEEN CONFIRMED THE DECISION THRESHOLD FOR SC DIAGNOSIS. Performed By: #### C BC #### [facility] Laboratory [address] [place] [address] Dr. Salud Lord TSHon 05-26-2022 TSH 1.137 uIU/mL Normal 0.358-3.740 [facility] Comment on above: Performed By: #### C BC #### [facility] Laboratory [address] [place] [address] Dr. Salud Lord XR CHEST 05-26-2022 XR CHEST 1 V EXAM: XR CHEST 1 V HISTORY: Palpitations COMPARISON(S): Chest radiograph 03/03/2022: CT chest 04/06/2019 TECHNIQUE: Single portable AP chest radiograph FINDINGS: Support devices: Dual lead cardiac pacer with leads terminating over the right atrium and right ventricle. Overlying telemetry leads. Lungs/pleura: Lungs are clear. No pleural effusion or pneumothorax. Heart/mediastinum: Heart and mediastinum are normal. Bones/Soft Tissues: No acute osseous abnormality. Upper abdomen: Imaged upper abdomen is unremarkable. IMPRESSION: No evidence for acute cardiopulmonary disease. Electronically authenticated by: MARLINE MARIN Date: 2022-05-26 18:06 Normal [facility] CBC AUTO DIFFon 12-25-2021 BASO # 0.0 103/ul Normal 0.0-0.1 [facility] Comment on above: Performed By: #### C BC #### [facility] Laboratory [address] [place] [address] Dr. Salud Lord Basophils/100 WBC (Bld) 0.3 % Normal 0.2-2.0 [facility] Comment on above: Performed By: #### C BC #### [facility] Laboratory [address] [place] [address] Dr. Salud Lord EO # 0.0 103/ul Normal 0.0-0.7 [facility] Comment on above: Performed By: #### C BC #### [facility] Laboratory [address] [place] [address] Dr. Salud Lord Eosinophils/100 WBC (Bld) 1.0 % Normal 0.9-7.0 [facility] Comment on above: Performed By: #### C BC #### [facility] Laboratory [address] [place] [address] Dr. Salud Lord Erythrocyte distribution width (RBC) [Ratio] 14.0 % Normal 11.0-15.0 [facility] Comment on above: Performed By: #### C BC #### [facility] Laboratory [address] [place] [address] Dr. Salud Lord Hematocrit (Bld) [Volume fraction] 37.5 % Critically low 42.0-54.0 [facility] Comment on above: Performed By: #### C BC #### [facility] Laboratory [address] [place] [address] Dr. Salud Lord Hemoglobin (Bld) [Mass/Vol] 13.5 g/dL Critically low 14.0-18.0 [facility] Comment on above: Performed By: #### C BC #### [facility] Laboratory [address] [place] [address] Dr. Salud Lord IG # 0.01 10e3/ul Normal 0.00-0.03 [facility] Comment on above: Performed By: #### C BC #### [facility] Laboratory [address] [place] [address] Dr. Salud Lord IG % 0.3 % Normal 0.0-0.5 [facility] Comment on above: Performed By: #### C BC #### [facility] Laboratory [address] [place] [address] Dr. Salud Lord LYMPH # 1.2 103/ul Normal 1.2-3.8 [facility] Comment on above: Performed By: #### C BC #### [facility] Laboratory [address] [place] [address] Dr. Salud oLrd Lymphocytes/100 WBC (Bld) 31.4 % Normal 20.5-60.0 [facility] Comment on above: Performed By: #### C BC #### [facility] Laboratory [address] [place] [address] Dr. Salud Lord MANUAL DIFF REQ NO Normal [facility] Comment on above: Performed By: #### C BC #### [facility] Laboratory [address] [place] [address] Dr. Salud Lord MCH (RBC) [Entitic mass] 33.3 pg Normal 25.9-34.0 [facility] Comment on above: Performed By: #### C BC #### [facility] Laboratory [address] [place] [address] Dr. Salud Lord MCHC (RBC) [Mass/Vol] 36.0 g/dL Critically high 29.9-35.2 [facility] Comment on above: Performed By: #### C BC #### [facility] Laboratory [address] [place] [address] Dr. Salud Lord MCV (RBC) [Entitic vol] 92.6 fL Normal 80.0-94.0 [facility] Comment on above: Performed By: #### C BC #### [facility] Laboratory [address] [place] [address] Dr. Salud Lord MONO # 0.3 103/ul Normal 0.3-0.8 [facility] Comment on above: Performed By: #### C BC #### [facility] Laboratory [address] [place] [address] Dr. Salud Lord Monocytes/100 WBC (Bld) 7.3 % Normal 1.7-12.0 [facility] Comment on above: Performed By: #### C BC #### [facility] Laboratory [address] [place] [address] Dr. Salud Lord NEUT # 2.3 103/ul Normal 1.4-6.5 [facility] Comment on above: Performed By: #### C BC #### [facility] Laboratory [address] [place] [address] Dr. Salud Lord Neutrophils/100 WBC (Bld) 59.7 % Normal 43.0-75.0 [facility] Comment on above: Performed By: #### C BC #### [facility] Laboratory [address] [place] [address] Dr. Salud Lord Platelet mean volume (Bld) [Entitic vol] 10.3 fL Normal 9.5-13.5 [facility] Comment on above: Performed By: #### C BC #### [facility] Laboratory [address] [place] [address] Dr. Salud Lord PLT 169 103/ul Normal 150-450 [facility] Comment on above: Performed By: #### C BC #### [facility] Laboratory [address] [place] [address] Dr. Salud Lord RBC 4.05 106/ul Critically low 4.70-6.10 [facility] Comment on above: Performed By: #### C BC #### [facility] Laboratory [address] [place], [place] [address] Dr. Salud Lord WBC 3.8 103/ul Critically low 4.0-11.0 [facility] [place] [facility] Comment on above: Performed By: #### C BC #### [facility] Laboratory [address] [place], [place] [address] Dr. Salud Lord Covid-19 PCR ([facility])on 11-27 SARS-CoV-2 (COVID-19) RNA ESTELLE+probe Ql (Unsp spec) Not detected Normal NOT DETECTED [facility] Comment on above: Result Comment: This test is not yet approved or cleared by the [place] FDA. When there are no FDA-approved or cleared tests available, and other criteria are met, FDA can make tests available under an emergency access mechanism called an Emergency Use Authorization (EUA). The EUA for this test is supported by the [place] of Health and Human Service's (HHS's) declaration that circumstances exist to justify the emergency use of in vitro diagnostics for the detection and/or diagnosis of the virus that causes COVID-19. This EUA will remain in effect (meaning this test can be used) for the duration of the COVID-19 declaration justifying emergency of IVDs, unless it is terminated or revoked by FDA (after which the test may no longer be used). When diagnostic testing is negative, the possibility of a false negative should be considered in the context of a patient's recent exposures and the presence of clinical signs and symptoms consistent with SARS-CoV-2. Performed By: #### C BC #### [facility] Laboratory [address] [place], [place] [address] Dr. Salud Lord PROF CHEM 8 (BAS METB)on Anion gap [Moles/Vol] 10.5 mmol/L Normal [facility] Comment on above: Performed By: #### B PAINTER SIGN MAINTENANCE, TSH, MG #### [facility] Laboratory [address] [place], [place] [address] Dr. Salud Lord Calcium [Mass/Vol] 7.9 mg/dL Critically low 8.5-10.1 [facility] Comment on above: Performed By: #### B PAINTER SIGN MAINTENANCE, TSH, MG #### [facility] Laboratory [address] [address] [address] Salud Lord Chloride [Moles/Vol] 100 mmol/L Normal 98-107 [facility] Comment on above: Performed By: #### B PAINTER SIGN MAINTENANCE, TSH, MG #### [facility] Laboratory [address] [address] [address] Salud Lord CO2 [Moles/Vol] 25.3 mmol/L Normal 21.0-32.0 [facility] Comment on above: Performed By: #### B PAINTER SIGN MAINTENANCE, TSH, MG #### [facility] Laboratory [address] [address] [address] Salud Lord Creatinine [Mass/Vol] 0.99 mg/dL Normal 0.70-1.30 [facility] Comment on above: Performed By: #### B PAINTER SIGN MAINTENANCE, TSH, MG #### [facility] Laboratory [address] [place] [address] Dr. Salud Lord EGFR-AF TRINIDADIAN >60 Normal >=60 [facility] Comment on above: Performed By: #### B PAINTER SIGN MAINTENANCE, TSH, MG #### [facility] Laboratory [address] [place] [address] Dr. Salud Lord EGFR-NON AF TRINIDADIAN >60 Normal >=60 [facility] Comment on above: Performed By: #### B PAINTER SIGN MAINTENANCE, TSH, MG #### [facility] Laboratory [address] [place] [address] Dr. Salud Lord Glucose [Mass/Vol] 91 mg/dL Normal 74-106 [facility] Comment on above: Performed By: #### B PAINTER SIGN MAINTENANCE, TSH, MG #### [facility] Laboratory [address] [place] [address] Dr. Salud Lord Potassium [Moles/Vol] 3.8 mmol/L Normal 3.5-5.1 [facility] Comment on above: Performed By: #### B PAINTER SIGN MAINTENANCE, TSH, MG #### [facility] Laboratory [address] [place] [address] Dr. Salud Lord Sodium [Moles/Vol] 132 mmol/L Critically low 136-145 [facility] Comment on above: Performed By: #### B PAINTER SIGN MAINTENANCE, TSH, MG #### [facility] Laboratory [address] [address] [address] Salud Lord Urea nitrogen [Mass/Vol] 8.0 mg/dL Normal 7.0-18.0 [facility] Comment on above: Performed By: #### B PAINTER SIGN MAINTENANCE, TSH, MG #### [facility] Laboratory [address] [address] [address] Salud Lord Urea nitrogen/Creatinine [Mass ratio] 8.1 mg/mg Normal [facility] Comment on above: Performed By: #### B PAINTER SIGN MAINTENANCE, TSH, MG #### [facility] Laboratory [address] [address] [address] Salud Lord APTSaul 03-08-2020 aPTT Coag (Bld) [Time] 30.1 s Normal 25.0-35.0 [facility] Comment on above: Result Comment: ALL RESULTS MUST BE INTERPRETED WITH RESPECT TO BLOOD DRAWING ARTIFACT OR DILUTION ERROR OF ANTICOAGULANT AT THE TIME OF SAMPLING. THE APTT SHOULD NOT BE USED TO MONITOR UNFRACTIONATED HEPARIN THERAPY, THIS LABORATORY NO LONGER HAS AN ESTABLISHED THERAPEUTIC RANGE BASED ON THE APTT. IT IS RECOMMENDED THAT THE UFH - HEPARIN ASSAY (ANTI-XA ACTIVITY) BE USED FOR THIS PURPOSE. Performed By: #### 5 [id number], [id number] #### [facility] [address] [place] [address], [facility] BASIC METABOLIC PANELon 02-25 Calcium [Mass/Vol] 8.9 mg/dL Normal 8.6-10.3 [facility] Comment on above: Performed By: #### 0 0071 #### [facility] [address] [place] [address], [place] Chloride [Moles/Vol] 104 mmol/L Normal 98-107 [facility] Comment on above: Performed By: #### 0 0071 #### [facility] [address] [place] [address], [place] CO2 [Moles/Vol] 27 mmol/L Normal 21-31 [facility] Comment on above: Performed By: #### 0 0071 #### [facility] [address] [place] [address], [place] Creatinine [Mass/Vol] 1.15 mg/dL Normal 0.70-1.30 [facility] [place] Comment on above: Performed By: #### 0 0071 #### [facility] [address] [place] [address], [place] GFR/1.73 sq M.predicted among blacks MDRD (S/P/Bld) [Vol rate/Area] mL/min/{1.73_m2} Normal >60 [facility] [place] Comment on above: Performed By: #### 0 0071 #### [facility] [address] [place] [address], [place] GFR/1.73 sq M.predicted among non-blacks MDRD (S/P/Bld) [Vol rate/Area] mL/min/{1.73_m2} Normal >60 [facility] [place] Comment on above: Performed By: #### 0 0071 #### [facility] [address] [place] [address], [place] Glucose [Mass/Vol] 38 mg/dL Critically low 70-100 Th e [facility] [place] Comment on above: Result Comment: M-CR ITICAL RESULT(S) REVIEWED, CALLED TO AND READ BACK BY NALDO HALL RN @ [phone] Performed By: #### 0 0071 #### [facility] [address] [place] [address], [place] Potassium [Moles/Vol] 3.9 mmol/L Normal 3.5-5.1 [facility] [place] Comment on above: Performed By: #### 0 0071 #### [facility] [address] [place] [address], [place] Sodium [Moles/Vol] 139 mmol/L Normal 136-145 [facility] Comment on above: Performed By: #### 0 0071 #### [facility] [address] [facility] [place] [address], [facility] Urea nitrogen [Mass/Vol] 18 mg/dL Normal 7-25 [facility] [place] Comment on above: Performed By: #### 0 70 #### [facility] [address] [place] [address], [facility] CBC COMPLETE BLOOD COUNTon - Erythrocyte distribution width (RBC) [Ratio] 13.8 % Normal 11.5-15.0 [facility] [place] Comment on above: Performed By: #### 5 08 #### [facility] [address] [facility]. [address] Hematocrit (Bld) [Volume fraction] 42.6 % Normal 39.0-50.0 [facility] Comment on above: Performed By: #### 5 08 #### [facility] [address] [facility] [address] Hemoglobin (Bld) [Mass/Vol] 13.8 g/dL Normal 13.0-17.0 [facility] Comment on above: Performed By: #### 5 0608 #### [facility] [address] [facility] [address], [facility] MCH (RBC) [Entitic mass] 31.3 pg Normal 27.0-33.0 [facility] Comment on above: Performed By: #### 5 0608 #### [facility] [address] [facility] [place] [address], [facility] MCHC (RBC) [Mass/Vol] 32.4 g/dL Normal 32.0-35.0 [facility] Comment on above: Performed By: #### 5 0608 #### [facility] [address] [place] [address], [facility] MCV (RBC) [Entitic vol] 96.6 fL Normal 82.0-98.0 [facility] Comment on above: Performed By: #### 5 0608 #### [facility] [address] [place] [address], [facility] Nucleated RBC/100 WBC (Bld) [Ratio] 0 % Normal 0-0 [facility] Comment on above: Performed By: #### 5 0608 #### [facility] [address] [place] [address], [facility] PLAT CNT 161 10*3/uL Normal 150-400 The [facility] Comment on above: Performed By: #### 5 0608 #### [facility] [address] RBC (Bld) [#/Vol] 4.41 10*6/uL Normal 4.20-5.70 [facility] Comment on above: Performed By: #### 5 0608 #### [facility] [address] [place] [address], [facility] WBC (Bld) [#/Vol] 5.30 10*3/uL Normal 4.00-10.60 [facility] Comment on above: Performed By: #### 5 0608 #### [facility] [address] PROTHROMBIN TIMEon 1 INR Coag (PPP) [Relative time] 1.00 {INR} Normal 0.91-1.16 The [facility] Comment on above: Result Comment: ACCC P RECOMMENDED INR FOR WARFARIN THERAPY ------ ------- CONDITION INR PROPHYLAXIS OF VENOUS THROMBOSIS 2-3 (HIGH-RISK SURGERY) TREATMENT OF VENOUS THROMBOSIS 2-3 TREATMENT OF PULMONARY EMBOLISM 2-3 PREVENTION OF SYSTEMIC EMBOLISM: 2-3 ACUTE MYOCARDIAL INFARCTION TISSUE HEART VALVES VALVULAR HEART DISEASE ATRIAL FIBRILLATION RECURRENT SYSTEMIC EMBOLISM MECHANICAL HEART VALVE 2.5-3.5 FROM: ORAL ANTICOAGULANTS. MECHANISM OF ACTION, CLINICAL EFFECTIVENESS, AND OPTIMAL THERAPEUTIC RANGE. CHEST 1995;[id number]. Performed By: #### 5 [id number], [id number] #### [facility] [address] PT Coag (PPP) [Time] 13.2 s Normal 12.3-14.8 [facility] Comment on above: Result Comment: ALL RESULTS MUST BE INTERPRETED WITH RESPECT TO BLOOD DRAWING ARTIFACT OR DILUTION ERROR OF ANTICOAGULANT AT THE TIME OF SAMPLING. Performed By: #### 5 [id number], [id number] #### [facility] [address] Basic Metabolic Profon 10-30 (cont.) Normal [facility] Comment on above: Result Comment: Aver age GFR for 40-49 years old: 99 mL/min/1.73sq mChronic Kidney Disease: <60 mL/min/1.73sq mKidney failure: <15 mL/min/1.73sq meGFR calculated using average adult body mass. Additional eGFR calculator available at:http://[email or web address] [employer]..[email or web address] [address] [place] [address] Performed By: #### P T, CDP, BMP, ALCB ####[facility] [address] [place] [address] Anion gap 17 mmol/L Normal 9-[address] [facility] Comment on above: Performed By: #### P T, CDP, BMP, ALCB ####[facility] [id number] [place] [address] Calcium 8.4 mg/dL Low 8.6-10.[address] [facility] Comment on above: Performed By: #### P T, CDP, BMP, ALCB ####[facility] [address] [place] [address] Chloride 104 mmol/L Normal 98-[address] [facility] Comment on above: Performed By: #### P T, CDP, BMP, ALCB ####[facility] [address] [place] [address] CO2 22 mmol/L Normal 20-[address] [facility] Comment on above: Performed By: #### P T, CDP, BMP, ALCB ####[facility] [address] [place] [address] Creatinine 0.91 mg/dL Normal 0.70-1.[address] [facility] Comment on above: Performed By: #### P T, CDP, BMP, ALCB ####[address] [address] eGFR (non-black) mL/min/{1.73_m2} Normal >60 [facility] Comment on above: Performed By: #### P T, CDP, BMP, ALCB ####[facility] [address] [place] [address] Glucose mass conc 88 mg/dL Normal 70-99 [facility] Comment on above: Performed By: #### P T, CDP, BMP, ALCB ####[facility] [address] [place] [address] Potassium molar conc 3.9 mmol/L Normal 3.7-5.[address] [facility] Comment on above: Performed By: #### P T, CDP, BMP, ALCB ####[facility] [address] [place] [address] Sodium 143 mmol/L Normal 135-[address] [facility] Comment on above: Performed By: #### P T, CDP, BMP, ALCB ####[address] [address] Urea nitrogen 8 mg/dL Normal 6-[address] [facility] Comment on above: Performed By: #### P T, CDP, BMP, ALCB ####[address] [address] BUN/CRE Ratio NOT REPORTED Normal - [facility] Comment on above: Performed By: #### P T, CDP, BMP, ALCB ####[address] [address] Staging: NOT REPORTED Normal [facility] Comment on above: Performed By: #### P T, CDP, BMP, ALCB ####[address] [address] CBC with Diffon 10-30-2016 Abs. Basophil 0.00 k/uL Normal 0.0-0.[address] [facility] Comment on above: Result Comment: [address] [address] Performed By: #### P T, CDP, BMP, ALCB ####[address] [address] Abs.Neutrophil (Seg) 3.80 k/uL Normal 1.8-7.[address] [facility] Comment on above: Performed By: #### P T, CDP, BMP, ALCB ####[address] [address] Basophils/100 WBC Auto (Bld) 0 % Normal [facility] Comment on above: Performed By: #### P T, CDP, BMP, ALCB ####[address] [address] Eosinophils 0.00 10*3/uL Normal 0.0-0.[address] [facility] Comment on above: Performed By: #### P T, CDP, BMP, ALCB ####[address] [address] Eosinophils/100 leukocytes 1 % Normal [facility] Comment on above: Performed By: #### P T, CDP, BMP, ALCB ####[address] [address] Erythrocyte distribution width Auto Ratio (RBC) 17.4 % High 12.5-15.[address] [facility] Comment on above: Performed By: #### P T, CDP, BMP, ALCB ####[address] [address] Erythrocyte morphology ANISOCYTOSIS PRESENT Normal [facility] Comment on above: Performed By: #### P T, CDP, BMP, ALCB ####[address] [address] Erythrocytes (RBC) 4.66 10*6/uL Normal 4.5-5.9 [facility] Comment on above: Performed By: #### P T, CDP, BMP, ALCB ####[address] [address] Hematocrit (HCT) 44.5 % Normal 41-53 [facility] Comment on above: Performed By: #### P T, CDP, BMP, ALCB ####[address] [address] Hemoglobin mass conc (Bld) 15.1 g/dL Normal 13.5-17.[address] [facility] Comment on above: Performed By: #### P T, CDP, BMP, ALCB ####[address] [address] Lymphocytes 1.70 10*3/uL Normal 1.0-4.[address] [facility] Comment on above: Performed By: #### P T, CDP, BMP, ALCB ####[address] [address] Lymphocytes/100 leukocytes 27 % Normal [facility] Comment on above: Performed By: #### P T, CDP, BMP, ALCB ####[address] [address] MCH 32.5 pg Normal 26-[address] [facility] Comment on above: Performed By: #### P T, CDP, BMP, ALCB ####[address] [address] MCHC mass conc (RBC) 34.0 g/dL Normal 31-[address] [facility] Comment on above: Performed By: #### P T, CDP, BMP, ALCB ####[address] [address] MCV 95.5 fL Normal 80-[address] [facility] Comment on above: Performed By: #### P T, CDP, BMP, ALCB ####[address] [address] Monocytes 0.70 10*3/uL Normal 0.1-1.[address] [facility] Comment on above: Performed By: #### P T, CDP, BMP, ALCB ####[address] [address] Monocytes/100 leukocytes 11 % Normal [facility] Comment on above: Performed By: #### P T, CDP, BMP, ALCB ####[address] [address] Neutrophil (Seg) 61 % Normal [facility] Comment on above: Performed By: #### P T, CDP, BMP, ALCB ####[address] [address] Platelet mean volume (PMV) 8.1 fL Normal 6.0-12.[address] [facility] Comment on above: Performed By: #### P T, CDP, BMP, ALCB ####[address] [address] Platelets 205 10*3/uL Normal 140-[address] [facility] Comment on above: Performed By: #### P T, CDP, BMP, ALCB ####[address] [address] WBC (Leukocytes) 6.3 10*3/uL Normal 3.5-11.0 [facility] Comment on above: Performed By: #### P T, CDP, BMP, ALCB ####[address] [address] Auto Diff Performed NOT REPORTED Normal [facility] Comment on above: Performed By: #### P T, CDP, BMP, ALCB ####[address] [address] Platelets NOT REPORTED Normal [facility] Comment on above: Performed By: #### P T, CDP, BMP, ALCB ####[address] [address] WBC Morphology NOT REPORTED Normal [facility] Comment on above: Performed By: #### P T, CDP, BMP, ALCB ####[address] [address] [address] CERVICAL SPINE WO CONTRAS Ton 10-30-2016 CT CERVICAL SPINE WO CONTRAST EXAMINATION:CT OF THE CERVICAL SPINE WITHOUT CONTRAST 10/30/2016 4:57 amTECHNIQUE:CT of the cervical spine was performed without the administration ofintravenous contrast. Multiplanar reformatted images are provided for review.Dose modulation, iterative reconstruction, and/or weight based adjustment ofthe mA/kV was utilized to reduce the radiation dose to as low as reasonablyachievable.CO MPARISON:May 15, 2015HISTORY:ORDERING SYSTEM PROVIDED HISTORY: fall + LOCFINDINGS:BONES/ALIGN MENT: There is no evidence of an acute cervical spine fracture.Straightening of the cervical lordosis.DEGENERATIVE CHANGES: C5-6 disc osteophyte complex with uncinate arthrosis,moderate right and mild left neural foraminal stenosis. Mild central spinalcanal stenosis. Atlantodental degenerative changes are present.SOFT TISSUES: There is no prevertebral soft tissue swelling.IMPRESSION: No acute abnormality of the cervical spine.Interpreted by:MORAIMA Garciaigned by:Gregory Hector MD10/30/16Final result Normal [facility] CT HEAD WO CONTRASTon 2016 CT HEAD WO CONTRAST EXAMINATION:CT OF TH E HEAD WITHOUT CONTRAST 10/30/2016 4:57 amTECHNIQUE:CT of the head was performed without the administration of intravenouscontrast. Dose modulation, iterative reconstruction, and/or weight basedadjustment of the mA/kV was utilized to reduce the radiation dose to as lowas reasonably achievable.COMPARISON:N one.HISTORY:ORDERING SYSTEM PROVIDED HISTORY: fall, +LOCFINDINGS:BRAIN/VENT RICLES: There is no acute intracranial hemorrhage, mass effect ormidline shift. No abnormal extra-axial fluid collection. The briones-whitedifferentiati on is maintained without evidence of an acute infarct. There isno evidence of hydrocephalus.ORBITS: The visualized portion of the orbits demonstrate no acute abnormality.SINUSES: The visualized paranasal sinuses and mastoid air cells demonstrateno acute abnormality.SOFT TISSUES/SKULL: Nasal bone with minor deformity is stable.IMPRESSION: No acute intracranial abnormality.Interpreted by:MORAIMA Garciaigned by:Gregoyr Hector MD10/30/16Final result Normal [facility] ED Noteon 10-30-2016 HIM IP Note OR Feed Inspection Supervisor Normal [facility] HIM IP Note OR Feed Inspection Supervisor Normal [facility] HIM IP Note OR Feed Inspection Supervisor Normal [facility] HIM IP Note OR Feed Inspection Supervisor Normal [facility] HIM IP Note OR Feed Inspection Supervisor Normal [facility] HIM IP Note OR Feed Inspection Supervisor Normal [facility] ED Provider Noteon 7 HIM IP Note OR Feed Inspection Supervisor Normal [facility] Ethanol Alcoholon 10-30-2016 Ethanol 369 mg/dL Critically high <[address] [facility] Comment on above: Performed By: #### P T, CDP, BMP, ALCB ####[address] [address] Ethanol percent 0.369 % Normal [facility] Comment on above: Result Comment: [address] [address] Performed By: #### P T, CDP, BMP, ALCB ####[address] [address] PTon 10-30-2016 INR Coag RelTime (PPP) 1.0 {INR} Normal [facility] Comment on above: Result Comment: Ther apeutic Range: Moderate Anticoagulant Intensity: INR = 2.0-3.0 High Anticoagulant Intensity: INR = 2.5-3.[address] [address] Performed By: #### P T, CDP, BMP, ALCB ####[address] [address] Prothrombin time (PT) Coag time (PPP) 11.3 s Normal 9.4-12.[address] [facility] Comment on above: Performed By: #### P T, CDP, BMP, ALCB ####[address] [address] XR CHEST STANDARD TWO VWon 0 10-30-2016 XR CHEST STANDARD TWO VW EXAMINATION:TWO VIEWS OF THE CHEST10/30/2016 4:15 amCOMPARISON:None.HISTO RY:ORDERING SYSTEM PROVIDED HISTORY: chest painTECHNOLOGIST PROVIDED HISTORY:Reason for exam:->chest painFINDINGS:Right chest 2 lead pacer device.The lungs are without acute focal process. There is no effusion orpneumothorax. The cardiomediastinal silhouette is without acute process. Theosseous structures are without acute process.IMPRESSION: No acute process.Interpreted by:MORAIMA Garciaigned by:Gregory Hector MD10/30/16Final result Normal [facility] Encounters Encounter Date Encounter Type Care Provider Facility Start: 11-21-2022 ambulatory [facility] Start: 11-21-2022 End: 11-21-2022 ambulatory [facility] Start: 11-19-2022 End: 11-20-2022 ambulatory [facility] Start: 10-31-2022 End: 10-31-2022 ambulatory [facility] Start: 10-31-2022 End: 10-31-2022 Encounter for general adult medical examination without abnormal findings [facility] Start: 10-09-2022 End: 10-09-2022 ambulatory [facility] Start: 08-02-2022 End: 08-03-2022 ambulatory [facility] Start: 08-02-2022 End: 08-02-2022 ambulatory [facility] Start: 07-16-2022 End: 07[facility]16[facility]: 05-26-2022 End: 05-28-[address] VIRGIL MADDEN . Facility:[facility] Start: 12-27-2021 [facility]27[facility]21 Encounter for preprocedural laboratory examination MITUL [facility] Start: 12-25-2021 End: 12-26-2021 ambulatory MITUL REESE Facility:[facility] Start: 12-25-2021 End: 12-26-2021 Encounter for other preprocedural examination MITUL REESE Facility:[facility] Start: 10-30-2016 End: 10-30-2016 Emergency department patient visit FARIDA MORAN [facility] Procedures Date Procedure Procedure Detail Performing Clinician Start: 10-30-2016 POCT TROPONIN FARIDA MORAN Start: 10-30-2016 Ct cervical spine w/ o contrast material FARIDA MORAN Start: 10-30-2016 Ct head/brain w/o co ntrast material FARIDA MORAN Start: 10-30-2016 Chest x-ray FARIDA MORAN Start: 10-30-2016 BASIC METABOLIC PANEL C VANESA MORAN Start: 10-30-2016 CBC WITH AUTO DIFFERENTIAL FARIDA MORAN Start: 10-30-2016 ETHANOL FARIDA MORAN Start: 10-30-2016 PROTIME-INR FARIDA MORAN Start: 10-30-2016 POCT TROPONIN FARIDA MORAN Payers Date Payer Category Payer Medicaid [id number] 2015 Unknown [id number] 1970 Unknown [id number] 1968 Unknown [id number] 1959 Unknown [id number] Clinical Notes 07-16-2022 to 04-17-2023 Note Date & Type Note Facility 04-17-2023 Note Negative cologuard [facility] 11-29-2022 Note Patient called for 1 week follow up post a-fib ablation. He denies any concerns post procedure, states he has some bruising at puncture sites (no pain or hematoma). Taking medications without difficulty, denies any heartburn, reports he is eating & drinking ok. Has FU appointment scheduled. No questions verbalized per patient. [facility] 11-21-2022 Note Patient: Boni garrison Procedure Summary Date: 11/21/22 Room / Location: [facility] PRODUCTION STAFF WORKER 1 / [facility] (Cath) Anesthesia Start: 839 Anesthesia Stop: 1210 Procedure: Ablation a-fib paroxysmal Diagnosis: Paroxysmal atrial fibrillation (CMS/HCC) (Paroxysmal atrial fibrillation (CMS/HCC) [I48.0]) Providers: Mitul Reese MD Responsible Provider: Pasquale Estrella MD Anesthesia Type: general ASA Status: 3 Anesthesia Type: general Vitals Value Taken Time BP 150/92 11/21/22 1222 Temp 36.2 ???C (97.2 ???F) 11/21/22 1210 Pulse 80 11/21/22 1222 Resp 12 11/21/22 1222 SpO2 100 % 11/21/22 1222 Vitals shown include unvalidated device data. Anesthesia Post Evaluation Patient location during evaluation: PACU Patient participation: complete - patient participated Level of consciousness: awake Pain score: 1 Pain management: adequate Airway patency: patent Cardiovascular status: stable Respiratory status: acceptable Hydration status: balanced There were no known notable events for this encounter. [facility] 11-21-2022 Note Patient: Boni garrison Procedure Summary Date: 11/21/22 Room / Location: [facility] PRODUCTION STAFF WORKER 1 EP / [facility] (Cath) Anesthesia Start: 839 Anesthesia Stop: Procedure: Ablation a-fib paroxysmal Diagnosis: Paroxysmal atrial fibrillation (CMS/HCC) (Paroxysmal atrial fibrillation (CMS/HCC) [I48.0]) Providers: Mitul Reese MD Responsible Provider: Pasquale Estrella MD Anesthesia Type: general ASA Status: 3 Anesthesia Post Transport Note Transport to: PACU O2 Route: face mask Oxygen Flow (L/min): 8 Patient Monitor: transport monitor Transport monitor type: ECG, SpO2 and Art Line Transport: uneventful Patient condition is: stable [facility] 11-21-2022 Note ATRIAL FIBRILLATION ABLATION PROCEDURE NOTE DATE OF PROCEDURE: 11/21/2022 PERFORMING PHYSICIAN: Dr. Mitul Reese NAVAL ARCHITECT: SHAD CONSENT: Patient NAME OF THE PROCEDURE: Pulmonary Vein Isolation and Comprehensive EP study. INDICATIONS FOR PROCEDURE: 1. Persistent atrial fibrillation having failed pharmacologic therapy. PROCEDURES PERFORMED: 1. Sonosite guided venous access as noted below and images stored. 2. Comprehensive EP study and catheter ablation for persistent atrial fibrillation through the pulmonary vein isolation technique. This includes right atrial recording and pacing, His bundle recording and right ventricular recording and pacing. 3. Intracardiac EP 3D mapping. 4. Intracardiac echocardiogram 5. Left atrial and coronary sinus recording and pacing to assess ablation results. 6. Left heart pressure measurements and LV pacing and recording. 7. Induction of arrhythmia and testing of ablation results using intravenous adenosine infusion. 8. Fluroscopy. 9. Device check pre and post ablation. FLUROSCOPY: 2.9min/6mGray EBL: 15cc INDICATIONS: PROCEDURE NOTE: Pt was brought to EP lab and she was in sinus rhythm, so KRYSTAL was deferred. Thereafter, we proceeded to do atrial fibrillation ablation. Both the groins were then prepared and draped. Ultrasound was used to determine the course and patency of the femoral veins on both sides and they were noted to be patent and the image stored in PACS. After infiltration with 1% lidocaine, 4 venous sheaths were placed in the right as noted below. Lead threshold was 1V and pt was not dependent. RFV: 8Fx3 ThermoCool SF Bi-Directional over SL1/ Vizigo, SL1:Pentaray, 8Fx1 CS Catheter (EZ Steer) 9Fx1: ICE catheter. Heparin bolus was given followed by additional bolus and continuous intravenous drip to target ACT around 350. An intracardiac ultrasound catheter was inserted into the right atrium to examine the right atrial anatomy, atrial septum, pulmonary vein anatomy and to monitor for pericardial effusion and guide transseptal access. ICE revealed that the patient had a significantly mildy dilated right atrium and left atrium no pericardial effusion. At this point I decided to proceed with the transseptal puncture to perform A. fib ablation. Double transseptal access technique was used to cross to the left side. Following the first transeptal access, which was achieved via puncture of the thinner aspect of the septum using Benito needle, Pentaray catheter was placed in the left atrium. Second transseptal access was acquired and SL1 sheath was exchanged over a wire to 8.5F Vizigo sheath. Pulmonary vein and left atrial anatomic mapping were performed using a 3-D CARTO computer-based mapping system. Identification of the pulmonary vein ostia was assisted by the left atrial signals on the ablation catheter, the ICE catheter and the Pentaray catheter placed in the individual pulmonary veins. Esophagus was mapped using the [employer] 3D mapping software and noted to lie towards the left side superiorly. A temperature probe was placed in the esophagus to monitor and avoid rise of temperature by more than a degree Celsius (Baseline 35.1C). Wide area circumferential ablation technique (WACA) was then performed with irrigated ST/SF catheter. Power settings were 40watts of 10-12s in the anterior aspect of WACA and 5-8s while ablating on the posterior wall as well as the roof. Following left WACA, isolation was noted. Following left WACA, entrance block was observed. There was change in temperature from baseline to 35.3C. Right sided PVI was then performed using a WACA approach with care to pace the anterior aspect of WACA and yossi to ensure there was no phrenic capture. Phrenic pacing was performed while ablating on the anterior aspect. In the end, all pulmonary veins were isolated. Adenosine did not reveal any reconnection. Burst pacing at 240ms did not induce any Afib or flutter. LV pacing revealed no retrograde left sided accessory pathway. Phrenic nerve capture was documented. The ICE catheter was used to reexamine the intracardiac anatomy and this showed no pericardial effusion. Since no flutter could be induced, I did not proceed with flutter ablation. Protamine was given and phrenic nerve capture was documented at the end of the case. ICE catheter and all catheters were removed. Venous sheaths were pulled, and hemostasis noted. He was transferred to observation bay and then to hospital room for observation. Device thresholds were checked and noted to be same and programmed with LRL of 55bpm. LA baseline (mmHg) 1st and 2nd 12/4, 14/3 LA 600ms pacing (mmHg) 13/1 LA 500ms pacing (mmHg) 15/3 AHms 91 HVms 45 VERPms 600/290, VA condunction+ AV Wenkebach ms 470ms AH jump ms NA AVNERP ms 600/410 AERP ms 600/230 POST PROCEDURE DIAGNOSIS 1. Early persistent atrial fibrillation s/p PVI (WACA). 2. EP study revealing n (more content not included)... [facility] 11-21-2022 Note Arterial Line: Date/Time: 11/21/2022 9:50 AM An arterial line was placed in the OR for the following indication(s): continuous blood pressure monitoring and blood sampling needed. A 20 G (size), 4 inch (length), Angiocath (type) catheter was placed, Seldinger technique used , into the Right radial artery, secured by tape, Tegaderm and Biodisc/Biopatch. Events: patient tolerated procedure well with no complications. Staffing Performed: resident/HOTEL SECURITY OFFICER/CAA Anesthesiologist: Pasquale Estrella MD Resident/HOTEL SECURITY OFFICER: Christen Mcgarry MD Performed by: GABE Tam Authorized by: Pasquale Estrella MD [facility] 11-21-2022 Note Airway Date/Time: 11/21/2022 8:59 AM Urgency: elective General Information and Staff Patient location during procedure: OR Anesthesiologist: Pasquale Estrella MD Resident/HOTEL SECURITY OFFICER/CAA: GABE Tam Performed: other anesthesia staff Learner assisted: Reymundo Calle Indications and Patient Condition Indications for airway management: anesthesia and airway protection Spontaneous Ventilation: absent Sedation level: deep Preoxygenated: yes Mask difficulty assessment: 1 - vent by mask Final Airway Details Final airway type: endotracheal airway Successful airway: ETT Cuffed: yes Successful intubation technique: video laryngoscopy Facilitating devices/methods: intubating stylet Endotracheal tube insertion site: oral Blade: Clement Blade size: #3 ETT size (mm): 7.5 Cormack-Lehane Classification: grade I - full view of glottis Placement verified by: chest auscultation and capnometry Measured from: lips ETT to lips (cm): 22 Number of attempts at approach: 1 Number of other approaches attempted: 0 Additional Comments Intubated by Alva Cabrera under the direct supervision of Dr. Estrella. LTA with 4ml 4% Lidocaine [facility] 11-21-2022 Note Patient: Boni garrison Procedure Information Date/Time: 11/21/22 0830 Procedure: Ablation a-fib paroxysmal Location: [facility] PRODUCTION STAFF WORKER 1 / [facility] (Cath) Providers: Mitul Reese MD Relevant Problems Anesthesia (+) ELVIA (obstructive sleep apnea) Cardio (+) Cardiac pacemaker in situ (+) Chronic migraine (+) Paroxysmal atrial fibrillation (CMS/HCC) (+) Sick sinus syndrome (CMS/HCC) (+) Sinus bradycardia Neuro/Psych (+) Chronic migraine (+) Headache (+)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
[2023-11-09 01:35] LABS: Ethanol 317 mg/dL
--- NOTE | 2023-11-09 01:44 | ECG_ITS ---
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
[2023-11-09 01:59] LABS: Basophils Percent Auto 0.6 % (0.2-2.0); Eosinophils Absolute Auto 0.3 10^3/uL (0.0-0.7); Eosinophils Percent Auto 5.5 % (0.9-7.0); Hematocrit 41.7 % (42.0-54.0); Hemoglobin 14.1 g/dL (14.0-18.0); Immature Granulocytes Abs Auto 0.04 10^3/uL (0.00-0.03); Immature Granulocytes Pct Auto 0.8 % (0.0-0.5); Lymphocytes Absolute Auto 1.5 10^3/uL (1.2-3.8); Lymphocytes Percent Auto 31.4 % (20.5-60.0); Mean Corpuscular HGB Conc 33.8 g/dL (29.9-35.2); Mean Corpuscular Hemoglobin 32.5 pg (25.9-34.0); Mean Corpuscular Volume 96.1 fL (80.0-94.0); Mean Platelet Volume 11.1 fL (9.5-13.5); Monocytes Absolute Auto 0.3 10^3/uL (0.3-0.8); Monocytes Percent Auto 6.9 % (1.7-12.0); Neutrophils Absolute Auto 2.6 10^3/uL (1.4-6.5); Neutrophils Percent Auto 54.8 % (43.0-75.0); Platelet Count 140 10^3/uL (150-450); Red Blood Count 4.34 10^6/uL (4.70-6.10); Red Cell Distribution Width 14.8 % (11.0-15.0); White Blood Count 4.8 10^3/uL (4.0-11.0)
[2023-11-09 02:02] LABS: Anion Gap 16.3; BUN Creatinine Ratio 15.2; Calcium 7.8 mg/dL (8.5-10.1); Carbon Dioxide 22.2 mmol/L (21.0-32.0); Chloride 103 mmol/L (98-107); Estimated GFR (African America >60 (>=60); Estimated GFR (Non-African Ame >60 (>=60); Glucose 94 mg/dL (74-106); Potassium 3.5 mmol/L (3.5-5.1); Sodium 138 mmol/L (136-145)
[2023-11-09 02:08] LABS: INR 1.01; Partial Thromboplastin Time 29.1 sec (22.3-36.2); Prothrombin Time 10.7 sec (9.0-11.6)
== END 2023-11-09 03:54 | disposition short-term general hospital (02) ==
PROVIDERS: Emergency Provider Emergency Medicine
DX: S02.119A Unspecified fracture of occiput, initial encounter for closed fracture (principal); S06.6X0A Traumatic subarachnoid hemorrhage without loss of consciousness, initial encounter; S06.6XAA Traumatic subarachnoid hemorrhage with loss of consciousness status unknown, initial encounter; W19.XXXA Unspecified fall, initial encounter; F10.129 Alcohol abuse with intoxication, unspecified; Y90.8 Blood alcohol level of 240 mg/100 ml or more
CPT/HCPCS: 36415; 70450; 72125; 80048; 80320; 85025; 85610; 85730; 93005; 99285